=== PATIENT | male | born 1985 | race Asian ===

== ENCOUNTER 2016-09-26 05:15 | Emergency (ER) | payer OTHER ==
[~2016-09-26] VITALS: Ht 162.6 cm; Wt 59.0 kg
[2016-09-26 05:16] VITALS: BP 146/80
--- NOTE | 2016-09-26 05:25 | NUR ---
TO ER BED 7
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
--- NOTE | 2016-09-26 05:38 | NUR ---
DR SINGLETARY EVAUALUATING PATIENT AT BEDSIDE.
[2016-09-26] MEDS ORDERED: DIAZEPAM 5 MG TAB PO ONE (05:45)
[2016-09-26] MEDS ORDERED: KETOROLAC 30 MG/ML VIAL IM ONE (05:45)
[2016-09-26 06:59] VITALS: BP 132/85
== END 2016-09-26 06:59 | disposition home or self-care (01) ==
LOC: MED 05:15
DX: S63.501A Unspecified sprain of right wrist, initial encounter (principal); S09.90XA Unspecified injury of head, initial encounter; V49.59XA Passenger injured in collision with other motor vehicles in traffic accident, initial encounter; W22.12XA Striking against or struck by front passenger side automobile airbag, initial encounter; Y93.89 Activity, other specified; Y92.89 Other specified places as the place of occurrence of the external cause; Y99.8 Other external cause status
CPT/HCPCS: 70450; 73110; 96372; 99284; J1885